=== PATIENT | female | born 1990 | race Two or more races ===

== ENCOUNTER → 2024-09-28 | Outpatient (CLI) | payer MEDICAID, SELFPAY ==
--- NOTE | 2024-09-28 10:34 | XR_ITS ---
Examination: Duplex scan of the lower extremity, unilateral right Date and time of exam: September 28, 2024 1105 hours INDICATIONS: Right leg swelling this month Technique: Duplex scan of the extremity veins using B-mode/grayscale imaging and Doppler spectral analysis and color flow Attention is directed to internal echogenicity, compression and augmentation involving these veins, color flow assessment, spectral analysis Findings: Major deep venous structures in the extremity demonstrate normal course and caliber. There is no evidence of deep vein thrombosis. Normal color flow and spectral analysis Impression: Negative for DVT..
== END | disposition home or self-care (01) ==
PROVIDERS: Referring Provider Physician Assistant Medical; Visit Provider Physician Assistant Medical
DX: R60.0 Localized edema (principal)
CPT/HCPCS: 93971

== ENCOUNTER → 2024-10-05 | Outpatient (CLI) | payer MEDICAID, SELFPAY ==
--- NOTE | 2024-10-05 12:01 | XR_ITS ---
Examination: Duplex scan of the lower extremity, unilateral left complete Date and time of exam: October 05, 2024, 1211 hours INDICATIONS: Bilateral leg swelling beginning 5 weeks ago, worse involving the left leg Technique: Duplex scan of the extremity veins using B-mode/grayscale imaging and Doppler spectral analysis and color flow Attention is directed to internal echogenicity, compression and augmentation involving these veins, color flow assessment, spectral analysis Findings: Major deep venous structures in the extremity demonstrate normal course and caliber. There is no evidence of deep vein thrombosis. Normal color flow and spectral analysis Impression: Negative for DVT..
== END | disposition home or self-care (01) ==
LOC: CDIM 11:56
PROVIDERS: PCP Physician Assistant; Referring Provider Physician Assistant Medical; Visit Provider Physician Assistant Medical
DX: M79.605 Pain in left leg (principal); R60.0 Localized edema
CPT/HCPCS: 93971

== ENCOUNTER 2024-10-09 22:37 | Inpatient (IN) | payer MEDICAID, SELFPAY ==
[2024-10-09] VITALS (11 sets, daily range): BP systolic 121–129; BP diastolic 80–84; PULSE 71–83; RESP 18–97; TEMP 36.7; O2SAT 97–99; BMI 27.8
[2024-10-10] VITALS (93 sets, daily range): BP systolic 103–141; BP diastolic 54–92; PULSE 65–110; RESP 16–20; TEMP 36.6–37.8; O2SAT 91–100
--- NOTE | 2024-10-10 00:48 | XR_ITS ---
Examination: age Limited Technique: Limited transabdominal sonographic images pelvis Date and time: October 10, 2024 0149 hrs. Indications: Pelvic contractions started today, labor evaluation Findings: Viable intrauterine gestation cephalic presentation Impression: Viable intrauterine gestation cephalic presentation
--- NOTE | 2024-10-10 00:56 | PD.LDHP ---
Documentation for date of: 10/10/24 OB Labor/Induct. HPI History of Present Illness : 4 Para: 3 Term pregnancies: 3 pregnancies: 0 Living children: 3 History of Abortions: Spontaneous and Elective: 0 History of Vaginal deliveries: 3 History of sections: No History of : No HAWA: 10/16/24 History of present illness: H and P dictated on STAT line #9 in [employer]. History of Present Adequate Care: Yes Past Medical History Surgical History SURGICAL: Negative Section Meds Home Medications and Allergies Home Medications ?Medication ?Instructions ?Recorded ?Confirmed ?Type prenat.vits,uzma,ogm-pehf-wsuis 1 tab PO QDAY 01/04/20 10/09/24 History Allergies Allergy/AdvReac Type Severity Reaction Status Date / Time No Known Allergies Allergy Verified 10/09/24 23:09 OB Exam Physical Exam Vital signs: Temp Pulse Resp BP Pulse Ox 98.1 F 96 18 125/81 99 10/09/24 22:45 10/10/24 00:36 10/09/24 22:45 10/10/24 00:36 10/09/24 23:26
[2024-10-10 01:16] LABS: Collection Type, Urine Clean Catch
[2024-10-10] MEDS: RINGERS LACTATED 1000 ML 1,000 ML 999 ML IV (01:19)
[2024-10-10 01:29] LABS: Basophils # (Auto) 0.0 Thou/mm3 (0.0-0.2); Basophils % (Auto) 0 % (0-2.5); Eosinophils # (Auto) 0.0 Thou/mm3 (0.0-0.5); Eosinophils % (Auto) 0 % (0-10); Hematocrit 37.9 % (36.0-46.0); Hemoglobin 12.8 g/dL (12.0-16.0); Immature Granulocytes Auto 0.01 Thou/mm3 (0.00-0.00); Lymphocytes # (Auto) 2.6 Thou/mm3 (1.0-4.8); Lymphocytes % (Auto) 39 % (10-50); Mean Corpuscular HGB Conc 33.8 g/dl (31.0-37.0); Mean Corpuscular Hemoglobin 29.8 pg (25.0-35.0); Mean Corpuscular Volume 88 fL (80-100); Monocytes # (Auto) 0.5 Thou/mm3 (0.0-0.8); Monocytes % (Auto) 8 % (0-12); Neutrophils # (Auto) 3.5 Thou/mm3 (1.8-7.7); Neutrophils % (Auto) 53 % (37-80); Nucleated Red Blood Cell # 0.00 Thou/mm3 (0.00-0.00); Nucleated Red Blood Cell % 0 /100 WBC (0); Platelet Count 122 Thou/mm3 (140-440); RDW Standard Deviation 43.8 fL (36.4-46.3); Red Blood Count 4.29 Miln/mm3 (4.00-5.20); White Blood Count 6.7 Thou/mm3 (3.6-11.0)
[2024-10-10 01:41] LABS: Alanine Aminotransferase 11 U/L (10-49); Albumin, Serum 4.0 gm/dL (3.5-5.0); Albumin/Globulin Ratio 1.8 (1.2-2.2); Alkaline Phosphatase 192 U/L (46-116); Anion Gap 12 (7-16); Aspartate Amino Transferase 25 U/L (0-34); BUN/Creatinine Ratio 14 Ratio (12-20); Bilirubin,Total 0.9 mg/dL (0.3-1.2); Blood Urea Nitrogen 7 mg/dL (9-23); Calcium 9.2 mg/dL (8.3-10.6); Calcium (Corrected) 9.2 mg/dL (8.5-10.1); Carbon Dioxide 19.3 mMol/L (20.0-31.0); Chloride 108 mMol/L (98-107); Creatinine (Component) 0.5 mg/dL (0.6-1.3); Estimated Creatinine Clearance 164.8 mL/min (>60); Globulin 2.2 gm/dL (2.3-3.5); Glucose 74 mg/dL (74-106); LDH (Lactate Dehydrogenase) 180 U/L (120-246); Osmolality,Calculated 274 (275-295); Potassium 3.6 mMol/L (3.4-5.1); Sodium 139 mMol/L (136-145); Total Protein 6.2 gm/dL (5.7-8.2); Uric Acid 4.2 mg/dL (3.1-7.8); eGFR > 60 See Note
[2024-10-10 02:11] LABS: Bacteria,Urine 1+; Bilirubin,Urine Negative (Negative); Blood,Urine Negative (Negative); Clarity,Urine Clear (Clear/Hazy); Color,Urine Colorless (Lt Yel-Yel); Glucose, Urine Negative (Negative); Ketones,Urine Negative (Negative); Leukocyte Esterase,Urine Negative (Negative); Nitrite,Urine Negative (Negative); PH,Urine 6.5 (5.0-7.0); Protein,Urine Negative (Neg - Trace); RBC,Urine 2 /hpf (0-3); Specific Gravity,Urine 1.005 (1.001-1.035); Squamous Epithelial Cell,Urine 1 /hpf (0-5); Urobilinogen,Urine Negative mg/dL (0.0-1.0); WBC,Urine < 1 /hpf (0-5)
[2024-10-10 02:22] LABS: Fibrinogen 486 mg/dL (175-375); INR 0.9 (0.9-1.3); Partial Thromboplastin Time 26.5 Seconds (22.0-36.0); Prothrombin Time 10.2 Seconds (9.0-12.2)
[2024-10-10 02:27] LABS: Syphilis Nonreactive (Nonreactive)
--- NOTE | 2024-10-10 02:34 | PRELIM_ITS ---
Obstetric ultrasound (Limited). October 10, 2024 at 0149 hours Clinical history: Verify presentation. No prior study is available for comparison. Findings and Impression: There is a gravid uterus with fetus in cephalic presentation. Report Electronically Signed By: Jose Angel Handy 10/10/2024 2:34:09 AM [EST]
[2024-10-10] MEDS: OXYTOCIN in NS 20 units 20 UNIT/1,000 ML BAG 125 UNIT IV (05:28)
[2024-10-10] MEDS: BENZO/LANO/ALOE (Dermoplast) 60 GM CAN 1 SPRAY TOP (05:54)
[2024-10-10] MEDS: DOCUSATE SOD 100 MG CAPSULE PO ×2 (11:11→20:36)
[2024-10-10] MEDS: Hydrocortisone Cr 2.5% 30 GM TUBE TOP (11:48)
[2024-10-10 12:40] LABS: Basophils # (Auto) 0.0 Thou/mm3 (0.0-0.2); Basophils % (Auto) 0 % (0-2.5); Eosinophils # (Auto) 0.0 Thou/mm3 (0.0-0.5); Eosinophils % (Auto) 0 % (0-10); Hematocrit 35.4 % (36.0-46.0); Hemoglobin 11.9 g/dL (12.0-16.0); Immature Granulocytes Auto 0.05 Thou/mm3 (0.00-0.00); Lymphocytes # (Auto) 1.7 Thou/mm3 (1.0-4.8); Lymphocytes % (Auto) 14 % (10-50); Mean Corpuscular HGB Conc 33.6 g/dl (31.0-37.0); Mean Corpuscular Hemoglobin 30.1 pg (25.0-35.0); Mean Corpuscular Volume 89 fL (80-100); Monocytes # (Auto) 1.0 Thou/mm3 (0.0-0.8); Monocytes % (Auto) 8 % (0-12); Neutrophils # (Auto) 9.1 Thou/mm3 (1.8-7.7); Neutrophils % (Auto) 77 % (37-80); Nucleated Red Blood Cell # 0.00 Thou/mm3 (0.00-0.00); Nucleated Red Blood Cell % 0 /100 WBC (0); Platelet Count 119 Thou/mm3 (140-440); RDW Standard Deviation 44.2 fL (36.4-46.3); Red Blood Count 3.96 Miln/mm3 (4.00-5.20); White Blood Count 11.9 Thou/mm3 (3.6-11.0)
[2024-10-10] MEDS: IBUPROFEN TAB 400 MG TABLET 800 MG PO ×2 (13:51→23:55)
[2024-10-10] MEDS: ACETAMINOPHEN 325 MG TABLET 650 MG PO (19:54)
[2024-10-11 04:15] VITALS: BP 114/74; PULSE 63; RESP 18; TEMP 36.6; O2SAT 97
[2024-10-11 07:01] VITALS: BP 110/70; PULSE 58; RESP 14; TEMP 36.7; O2SAT 97
[2024-10-11] MEDS: DOCUSATE SOD 100 MG CAPSULE PO (07:50)
--- NOTE | 2024-10-11 07:53 | ESHP_ITS ---
RE: FLAVIO PINK : 1990 DATE OF ADMISSION: 10/10/2024 HISTORY OF PRESENT ILLNESS: This is a 34-year-old 4 para 3-0-0-3 with due date of 10/16/2024 with intrauterine of 39 weeks and 1 day, who presents to labor and delivery complaining of contractions and is noted to be in active labor. RN reports vertex. The patient denies any leaking or bleeding. She reports normal movement. Her care was with [facility] and was complicated by some lower extremity edema first noticed on 09/13/2024. Ultrasound shows negative DVTs bilaterally. Workup for elevated lower extremity edema on 08/30/2024 showed baseline 24-hour urine protein was 73 mg. She denies any headache, change in vision or right upper quadrant pain. She reports regular contractions. She denies any leaking or bleeding. An ultrasound on 10/07/2024 showed cephalic. ALLERGIES: NO KNOWN DRUG ALLERGIES. MEDICATIONS: multivitamin 1 p.o. daily. SOCIAL HISTORY: She is . She denies any alcohol or drug use or smoking. PAST MEDICAL HISTORY: Lower extremity edema in and COVID-19 infection in 2021. FAMILY HISTORY: Diabetes in father. OBSTETRIC HISTORY: Three previous full-term normal vaginal deliveries without complication. PAST SURGICAL HISTORY: Denies. REVIEW OF SYSTEMS: She denies any chest pain, palpitations, cough, fever, shortness of breath or lower extremity pain. She denies any leaking or bleeding. She reports normal movement. PHYSICAL EXAMINATION: VITAL SIGNS: Blood pressure 117/71, heart rate 84, respirations 18, and temperature 98.6. HEENT: Oropharynx and sclerae are clear. LUNGS: Clear to auscultation bilaterally. HEART: Regular rate and rhythm. ABDOMEN: Gravid consistent with estimated weight 7.5 pounds. PELVIC EXAM: Per RN is 5 cm thick, -3, vertex intact. EXTREMITIES: Nontender. Bilateral 2+ edema, lower extremities. SKIN: No gross rashes or lesions. NEUROLOGIC: No focal deficits. ASSESSMENT AND PLAN: Intrauterine at 39 weeks and 1 day, active labor. Anticipate spontaneous vaginal delivery. Group B strep negative. Informed consent was obtained. The patient was made aware of the risks, complications, alternatives, and benefits of operative vaginal delivery and delivery and agrees with these modes of delivery if indicated. DT: 00:54:51 TT: 01:43:00 Ref: [id number] - TID: [id number]
[2024-10-11] MEDS: IBUPROFEN TAB 400 MG TABLET 800 MG PO (08:28)
--- NOTE | 2024-10-11 10:15 | PC.NURSE ---
patient declined MMR vaccine at this time
--- NOTE | 2024-10-11 13:40 | PD.LDPPPRG ---
Subjective Subjective Interval history: No problems. Exam Vital Signs Temp Pulse Resp BP Pulse Ox O2 Del Method 98.0 F 58 L 14 110/70 97 Room Air 10/11/24 07:01 10/11/24 07:01 10/11/24 07:01 10/11/24 07:01 10/11/24 07:01 10/11/24 07:01 Routine Respiratory Exam Comments: cta Routine Cardiovascular Exam Comments: rrr Routine Abdominal Exam Comments: fundus firm Routine Extremities Exam Comments: nontender Objective Labs 10/10/24 11:35 10/10/24 00:55 Impressions Impression: PPD #1 s/p Discharge Instructions Given. Assessment & Plan Time Spent With Patient Time: Total time spent is greater than 50% in coordination of care (as documented) at patient's floor/unit and/or counseling patient:
--- NOTE | 2024-10-11 13:42 | OBDSUM_ITS ---
Data (Trotter) Data Hx Section: No : 4 Term: 3 : 0 Livin Abortions: Spontaneous & Theraputic: 0 Delivery Data (Trotter) Labor Data Initiation of labor: Spontaneous Induction/Augmentation Agent: None ROM date: 10/10/24 ROM time: 01:09 Amniotic membrane rupture type: Spontaneous Amniotic fluid description: Clear Delivery Data EDC: 10/16/24 EDC calculated by:: LMP/early US confirmation Onset of labor date: 10/09/24 Onset of labor time: 18:30 Complete dilation date: 10/10/24 Complete dilation time: 04:20 [place] delivery date: 10/10/24 [place] delivery time: 05:19 Gestational age (weeks): 39 Gestational age (days): 1 Placenta delivery date: 10/10/24 Stage 1 total time: Labor - Stage 1 Duration 9 hours and 50 minutes Delivered by: geiling Delivery nurse: ira rasmussen rn. [place] nurse: quinn taveras rn. Admissions Recruiter at delivery: No Support person(s) at delivery: fob, patient's mother Other staff at delivery: cinthia john rnc. Delivery Method Delivery method: Normal Vaginal Delivery Presentation: Vertex position: OA Anesthesia Type Anesthesia Type: None Placenta Cord blood sent to lab: Yes cord blood collection: Cord Blood Type Episiotomy Episiotomy description: None EBL Estimated blood loss (ml): 150 Umbilical Cord cord description: 3 Vessels Complications Complications: None Data (Trotter) [place] Data order: 1 's gender: Female Identification band number: [id number] weight (gms): 7 lb 13.928 oz Weight (pounds): 7 lbs and 13.9 ozs 1 minute: 9 5 minutes: 9
--- NOTE | 2024-10-11 13:42 | PD.LDDS ---
DS: Providers Provider Date of admission: 10/10/24 00:45 Primary care physician: Physician No Primary/Family Admitting Provider: Boogie Christie MD Attending Provider on Admission: Boogie Christie MD Consults: 10/10/24 07:05 Referral Routine Comment: Attending Provider on DC: Boogie Christie MD Discharging Provider: Boogie Christie MD DS: Diagnosis Problem List Completed Was Problem List Reviewed/Reconciled?: Yes Summary/Hosp Course Brief History: H and P dictated on STAT line #9 in [employer]. Peripartum Data Delivery Method: Normal Vaginal Delivery Episiotomy Description: None Time Spent with Patient Time attestation: Total time spent providing and/or coordinating discharge services: Exam Vital Signs Temp Pulse Resp BP Pulse Ox O2 Del Method 98.0 F 58 L 14 110/70 97 Room Air 10/11/24 07:01 10/11/24 07:01 10/11/24 07:01 10/11/24 07:01 10/11/24 07:01 10/11/24 07:01 Discharge Plan Prescriptions/Referrals Prescriptions/Med Rec: No Action prenat.vits,uzma,[id number] Tablet 1 tab PO QDAY Referrals: No Primary/Family,Physician [Primary Care Provider] - Patient/Caregiver Discharge Instructions Education Materials: After a Vaginal , : Caring for Yourself, Change Expect Parents Print Language: Mohawk Activity Restrictions/Additional Instructions: follow up in office for a postrartum check up please call and schedule an appointment Planned Discharge Date 10/11/24
== END 2024-10-11 15:20 | disposition home or self-care (01) | DRG 560 ==
LOC: S4SX 10-10 01:44 → S4NX 10-10 09:10
PROVIDERS: Admitting Provider Specialist; Visit Provider Specialist
DX: O80 Encounter for full-term uncomplicated delivery (principal); Z3A.39 39 weeks gestation of pregnancy; Z37.0 Single live birth
CPT/HCPCS: 36415; 59409; 59899; 76815; 80053; 81001; 83615; 84550; 85025; 85384; 85610; 85730; 86780; 86850; 86900; 86901; 94762; J2590; J2795; J3010; J7120; A9270